=== PATIENT | female | born 1980 | race Caucasian/White ===

== ENCOUNTER 2018-01-17 17:20 | Emergency (ER) | payer OTHER ==
[~2018-01-17] VITALS: Ht 152.4 cm; Wt 80.7 kg
[~2018-01-17 17:20] MED LIST: TRAM50TA1 PO
[2018-01-17 17:28] VITALS: BP 98/66
--- NOTE | 2018-01-17 18:02 | NUR ---
PT AMBULATED TO BED 12.
[2018-01-17] MEDS ORDERED: DICYCLOMINE HCL LIQUID 20 MG, ALUMINUM HYD/MAG/SIMETHICONE 30 ML, LIDOCAINE VISCOUS 2% ... PO ONE ×3 (18:15)
--- NOTE | 2018-01-17 18:20 | NUR ---
37F bib significant other with c/o 08/16 gradual onset of constant, moderate to severe, sharp, epigastric abdominal pain x approx started 1430 today. Pt hx of gastritis. Pt denies any n/v/d or fevers. Pt is aox4 with steady gait. RR are even and unlabored. No acute distress at this time. Er md crook by bedside examining pt. All needs met at this time. Will continue to monitor.
[2018-01-17] MEDS ORDERED: FAMOTIDINE 20 MG TAB PO ONE (18:25)
[2018-01-17 18:27] LABS: BASOPHILS # (AUTO) 0.3 K/uL (0.00-0.22); BASOPHILS % (AUTO) 2.3 % (0.0-2.0); EOSINOPHILS # (AUTO) 0.1 K/uL (0-0.4); EOSINOPHILS % (AUTO) 0.8 % (0.0-4.0); HEMATOCRIT 39.3 % (36-48); LYMPHOCYTES # (AUTO) 2.3 K/uL (2.5-16.5); LYMPHOCYTES % (AUTO) 20.2 % (20.5-51.1); MEAN CORPUSCULAR HEMOGLOBIN 27 pg (27-31); MEAN CORPUSCULAR HGB CONC 33 g/dL (33-37); MEAN CORPUSCULAR VOLUME 81 fL (80-94); MONOCYTES % (AUTO) 9.1 % (1.7-9.3); NEUTROPHILS # (AUTO) 7.7 K/uL (1.8-7.7); NEUTROPHILS % (AUTO) 67.6 % (42.2-75.2); PLATELET COUNT (AUTO) 312 K/uL (140-450); RED BLOOD CELL COUNT(AUTO) 4.86 MIL/uL (4.20-5.40); RED CELL DISTRIBUTION WIDTH 12.7 % (11.6-13.7); WHITE BLOOD COUNT (AUTO) 11.4 K/uL (4.8-10.8)
[2018-01-17 18:51] LABS: ANION GAP 12.4 (8-16); CARBON DIOXIDE 28.1 mmol/L (21-32); CREATININE 0.7 mg/dL (0.6-1.3); POTASSIUM 3.5 mmol/L (3.5-5.1)
[2018-01-17 18:53] LABS: ALBUMIN 3.8 g/dL (3.4-5.0); TOTAL BILIRUBIN 0.4 mg/dL (0.0-1.0)
--- NOTE | 2018-01-17 19:21 | NUR ---
Pt report given to Jose Hamilton RN. Transfer of care at this time.
--- NOTE | 2018-01-17 19:33 | NUR ---
Received report from Mary LITTLE
[2018-01-17 19:50] LABS: APPEARANCE,URINE CLEAR (CLEAR); BILIRUBIN,URINE NEGATIVE (NEGATIVE); BLOOD, URINE NEGATIVE (NEGATIVE); COLOR,URINE YELLOW (YELLOW); LEUKOCYTE ESTERASE ,URINE NEGATIVE (NEGATIVE); NITRITE, URINE NEGATIVE (NEGATIVE); UGLUCOSE NEGATIVE (NEGATIVE)
[2018-01-17] MEDS ORDERED: DICYCLOMINE HCL LIQUID 10 MG/5 ML UDC PO ONE (19:50)
[2018-01-17] MEDS ORDERED: KETOROLAC 60 MG/2 ML VIAL IM ONE (19:50)
[2018-01-17] MEDS ORDERED: LIDOCAINE VISCOUS 2% 20 ML UDC PO ONE (19:50)
[2018-01-17] MEDS ORDERED: ALUMINUM HYD/MAG/SIMETHICONE 30 ML UDC PO ONE (19:50)
--- NOTE | 2018-01-17 20:01 | NUR ---
PT TAKEN TO CT
--- NOTE | 2018-01-17 20:09 | NUR ---
PT RETURNED FROM CT
[2018-01-17 20:59] VITALS: BP 102/65
--- NOTE | 2018-01-17 21:00 | NUR ---
Patient discharged with v/s stable. Written and verbal after care instructions given and explained. Patient alert, oriented and verbalized understanding of instructions. Ambulatory with steady gait. All questions addressed prior to discharge. ID band removed. Patient advised to follow up with PMD. Rx of MAALOX AND PROTONIX given. Patient educated on indication of medication including possible reaction and side effects. Opportunity to ask questions provided and answered.
== END 2018-01-17 21:00 | disposition home or self-care (01) ==
LOC: MED 17:20
DX: K29.70 Gastritis, unspecified, without bleeding (principal); K21.9 Gastro-esophageal reflux disease without esophagitis; Z90.49 Acquired absence of other specified parts of digestive tract
CPT/HCPCS: 36415; 74176; 80053; 81003; 83690; 84703; 85025; 96372; 99285; J1885

== ENCOUNTER 2019-02-11 15:24 | Emergency (ER) | payer OTHER ==
[~2019-02-11] VITALS: Ht 152.4 cm; Wt 81.6 kg
[2019-02-11 15:34] VITALS: BP 101/69
--- NOTE | 2019-02-11 15:36 | NUR ---
PT WHEELCHAIRED TO ER BED 02
--- NOTE | 2019-02-11 15:40 | NUR ---
PT BIB SELF TO THE ED WITH THE CHIEF C/O ABDOMINAL PAIN THAT RADIATES TO HER BACK SINCE THIS MORNING. HAS NOT TAKEN ANY PAIN MEDS YET. DENIES BURNING OR FREQUENCY OF URINATION. NO BLOOD IN URINE. DENIES RECENT FEVER. ON HER PERIODS, STARTED TODAY. VSS. ER MD AWARE. HX OF GALL BLADDER REMOVAL, KIDNEY STONE. DENIES FALL
[2019-02-11] MEDS ORDERED: ONDANSETRON 4 MG/2 ML VIAL IVP ONE (16:20)
[2019-02-11] MEDS ORDERED: MORPHINE SULFATE 4 MG/ML SYR IVP ONE (16:20)
[2019-02-11] MEDS ORDERED: NACL 0.9% 1,000 ML IV ONE (16:20)
[2019-02-11 16:44] LABS: BASOPHILS % (AUTO) 0.4 % (0.0-2.0); EOSINOPHILS # (AUTO) 0.1 K/uL (0-0.4); EOSINOPHILS % (AUTO) 0.9 % (0.0-4.0); HEMATOCRIT 41.6 % (36-48); HEMOGLOBIN 13.5 g/dL (12.0-16.0); LYMPHOCYTES # (AUTO) 1.9 K/uL (2.5-16.5); MEAN CORPUSCULAR HEMOGLOBIN 27 pg (27-31); MEAN CORPUSCULAR HGB CONC 33 g/dL (33-37); MEAN CORPUSCULAR VOLUME 82.6 fL (80-94); MONOCYTES # (AUTO) 0.6 K/uL (0.8-1.0); MONOCYTES % (AUTO) 6.3 % (1.7-9.3); NEUTROPHILS # (AUTO) 6.9 K/uL (1.8-7.7); NEUTROPHILS % (AUTO) 72.4 % (42.2-75.2); PLATELET COUNT (AUTO) 285 K/uL (140-450); RED BLOOD CELL COUNT(AUTO) 5.04 MIL/uL (4.20-5.40); RED CELL DISTRIBUTION WIDTH 13.7 % (11.6-13.7); WHITE BLOOD COUNT (AUTO) 9.6 K/uL (4.8-10.8)
[2019-02-11 16:58] LABS: ANION GAP 13.8 (8-16); CARBON DIOXIDE 25.7 mmol/L (21-32); CREATININE 0.8 mg/dL (0.6-1.3); POTASSIUM 3.5 mmol/L (3.5-5.1)
[2019-02-11 17:20] LABS: ALBUMIN 3.7 g/dL (3.4-5.0)
[2019-02-11 17:32] LABS: APPEARANCE,URINE HAZY (CLEAR); COLOR,URINE YELLOW (YELLOW)
[2019-02-11 17:33] LABS: BILIRUBIN,URINE NEGATIVE (NEGATIVE); BLOOD, URINE 3+ (NEGATIVE); LEUKOCYTE ESTERASE ,URINE 1+ (NEGATIVE); NITRITE, URINE NEGATIVE (NEGATIVE); UGLUCOSE NEGATIVE (NEGATIVE)
[2019-02-11 17:52] LABS: RBC,URINE 11-20 (MOD) /HPF (0-5); WBC,URINE 80-100 /HPF (0-5)
--- NOTE | 2019-02-11 18:30 | NUR ---
PT SEEN BY FADIA BLANK.
[2019-02-11] MEDS ORDERED: LEVOFLOXACIN 500 MG/D5W PREMIX 100 ML IV ONE (18:40)
--- NOTE | 2019-02-11 19:17 | NUR ---
REPORT GIVEN TO DOPSTER RN FOR CONTINUITY OF CARE.
--- NOTE | 2019-02-11 19:18 | NUR ---
REPORT RECIEVED FROM ANABEL CONTI. TRANSFER OF CARE AT THIS TIME.
[2019-02-11 20:13] VITALS: BP 108/83
--- NOTE | 2019-02-11 20:13 | NUR ---
Patient discharged with v/s stable. Written and verbal after care instructions given and explained. Patient alert, oriented and verbalized understanding of instructions. Ambulatory with steady gait. All questions addressed prior to discharge. ID band removed. Patient advised to follow up with PMD. Rx of Zofran, bactrim, tramadol, and senkot given. Patient educated on indication of medication including possible reaction and side effects. Opportunity to ask questions provided and answered.
== END 2019-02-11 20:13 | disposition home or self-care (01) ==
LOC: MED 15:24
DX: N39.0 Urinary tract infection, site not specified (principal); Z87.442 Personal history of urinary calculi; Z90.49 Acquired absence of other specified parts of digestive tract; Z79.2 Long term (current) use of antibiotics
CPT/HCPCS: 36415; 74177; 80053; 81001; 81025; 83605; 83690; 84484; 85025; 85610; 87086; 93005; 96365; 96375; 99284; J1956; J2270; J2405; Q9967; J7030